=== PATIENT | female | born 1965 | race Caucasian/White ===

== ENCOUNTER 2017-04-06 09:03 | Day surgery (SDC) | payer BC ==
[~2017-04-06 09:03] MED LIST: Lactated Ringers 1,000 ML IV SCH; Lidocaine 2% 5 ML SDV ONE; Propofol 200 MG/20 ML SDV ONE; Sodium Chloride 0.9% 10 ML Syringe FLUSH PRN; Sodium Chloride 0.9% 2.5 ML Syringe FLUSH PRN; fentaNYL 100 MCG/2 ML SDV ONE
[2017-04-06] MEDS ORDERED: Midazolam 1 MG/ML 2 ML SDV ONE (09:05)
--- NOTE | 2017-04-06 09:34 | PCM.PREANE ---
Preanesthetic Assessment - Anesthesia/Transfusion/Family Hx Anesthesia History: Prior Anesthesia Reaction Other Type of Anesthesia Reaction Comment: Nausea post anesthesia, denies any known problem in past Family History of Anesthesia Reaction: No Transfusion History: Prior Transfusion Without Reaction Intubation History: Unknown - Review of Systems General: No Symptoms Pulmonary: No Symptoms Cardiovascular: No Symptoms Gastrointestinal: Abdominal Pain, Diarrhea Neurological: No Symptoms Other: Reports: None - Physical Assessment Height: 1.57 m Weight: 105.233 kg ASA Class: 3 Mental Status: Alert & Oriented x3 Airway Class: Mallampati = 2 Dentition: Reports: Normal Dentition, [place](s) (x2 lower (back)) Thyro-Mental Finger Breadths: 3 Mouth Opening Finger Breadths: 3 ROM/Head Extension: Full Lungs: Clear to Auscultation, Normal Respiratory Effort Cardiovascular: Regular Rate, Regular Rhythm - Allergies Allergies/Adverse Reactions: Allergies Allergy/AdvReac Type Severity Reaction Status Date / Time No Known Allergies Allergy Verified 03/18/17 13:36 - Blood Blood Available: No - Anesthesia Plan Pre-Op Medication Ordered: None - Acknowledgements Anesthesia Type Planned: MAC Pt an Appropriate Candidate for the Planned Anesthesia: Yes Alternatives and Risks of Anesthesia Discussed w Pt/Guardian: Yes Pt/Guardian Understands and Agrees with Anesthesia Plan: Yes PreAnesthesia Questionnaire HEENT History: Reports: Allergic Rhinitis Other HEENT History: wears glasses Cardiovascular History: Reports: High Cholesterol Respiratory History: Reports: Sleep Apnea Other Respiratory History: uses CPAP Gastrointestinal History: Reports: Cholelithiasis, GERD Other Gastrointestinal History: Indigestion, epigastric pain Genitourinary History: Reports: Renal Calculus Other Genitourinary History: currently has left kidney stone, has passed a stone previously Psychiatric History: Reports: Anxiety, Depression Endocrine/Metabolic History: Reports: Obesity/BMI 30+ - Past Surgical History HEENT Surgical History: Reports: Tonsillectomy Female Surgical History: Reports: D&C, Hysterectomy Other Female Surgeries/Procedures: Laparoscopy for cysts - SUBSTANCE USE Smoking Status *Q: Never Smoker Recreational Drug Use History: No - HOME MEDS Home Medications: Home Meds Citalopram Hydrobromide [Citalopram HBr] 10 mg PO DAILY 02/25/15 [History] Zolpidem Tartrate [Zolpidem Tartrate ER] 1 tab PO BEDTIME PRN 02/25/15 [History] atorvaSTATin Calcium [Atorvastatin Calcium] 20 mg PO BEDTIME 02/25/15 [History] Multivitamin [Multi-Day Vitamins] 1 tab PO DAILY 03/18/17 [History] Tamsulosin [Flomax] 0.4 mg PO BEDTIME 04/01/17 [History] - CURRENT (IN HOUSE) MEDS Current Meds: Current Medications Lactated Ringer's (Ringers, Lactated) 1,000 mls @ 125 mls/hr IV ASDIRECTED VIVIAN Sodium Chloride (Saline Flush) 10 ml FLUSH ASDIRECTED PRN PRN Reason: Keep Vein Open Sodium Chloride (Saline Flush) 2.5 ml FLUSH ASDIRECTED PRN PRN Reason: Keep Vein Open Discontinued Medications Fentanyl (Sublimaze) Confirm Administered Dose 100 mcg .ROUTE .STK-MED ONE Stop: 04/06/17 07:15 Lidocaine (Xylocaine-Mpf 2%) Confirm Administered Dose 5 ml .ROUTE .STK-MED ONE Stop: 04/06/17 07:15 Midazolam HCl (Versed 1 Mg/Ml) Confirm Administered Dose 2 mg .ROUTE .STK-MED ONE Stop: 04/06/17 09:06 Propofol (Diprivan 20 Ml) Confirm Administered Dose 400 mg .ROUTE .STK-MED ONE Stop: 04/06/17 07:15
[2017-04-06] MEDS ORDERED: Propofol 200 MG/20 ML SDV ONE (10:14)
[2017-04-06] MEDS ORDERED: ePHEDrine 50 MG/ML SDV ONE (10:23)
--- NOTE | 2017-04-06 10:35 | PCM.OPNOTE ---
- General Post-Op/Procedure Note Date of Surgery/Procedure: 04/06/17 Operative Procedure(s): EGD and colonoscopy Findings: Normal colon. Hiatal hernia Pre Op Diagnosis: Nausea, vomiting, malaise Post-Op Diagnosis: Hiatal hernia Anesthesia Technique: MAC Primary Surgeon: Karli Colin Condition: Good
[2017-04-06 13:28] VITALS: BP 141/65
--- NOTE | 2017-04-06 20:10 | OR ---
SURGEON: LISA DAILEY MD DATE OF PROCEDURE: 04/06/2017 PREOPERATIVE DIAGNOSIS: Nausea, vomiting, and malaise. POSTOPERATIVE DIAGNOSIS: Hiatal hernia. PROCEDURE PERFORMED: Diagnostic EGD and colonoscopy. ANESTHESIA: MAC. INSTRUMENT USED: Olympus endoscope, Olympus colonoscope. EXTENT OF EXAM: To the second portion of the duodenum, to the cecum. PREPARATION: Good. LIMITATIONS: None. INDICATION FOR EXAMINATION: The patient is a 51-year-old female, who presents with vague abdominal complaints. She is found to have cholelithiasis on imaging; however, her symptoms did not fit the classic symptomatic cholelithiasis picture. The decision was made to perform a diagnostic EGD and colonoscopy. The patient and I discussed the procedures as well as the expected perioperative course. We discussed the risks including bleeding, infection, or perforation. The patient verbalized understanding and wishes to proceed. PROCEDURE IN DETAIL: The patient was brought into the endoscopy suite and placed in a beach chair position. A time-out was completed verifying the patient's name, age, date of , allergies, and procedure to be performed. Monitored anesthesia care was induced, and continuous oxygen was provided via nasal cannula throughout the procedure. After adequate sedation was achieved, the Olympus endoscope was placed in the patient's mouth through a bite block and navigated under direct visualization to the level of the second portion of the duodenum. This appeared normal and a photograph was taken. The first portion of the duodenum appeared normal. The scope was then brought into the stomach and a photograph was taken of the pylorus and the esophageal hiatus. The patient was noted to have a small hiatal hernia. The scope was then straightened out, and the gastric mucosa inspected. This appeared normal with no evidence of ulceration or inflammation. Biopsies were taken of the gastric antrum, body, and fundus and sent for H. pylori testing. The scope was then brought into the distal esophagus where again I took a photograph of the hiatal hernia sac. The remainder of the distal esophagus appeared normal with no evidence of inflammation. The scope was then removed from the patient, and this part of the procedure was terminated. The patient was placed in a left lateral decubitus position. A digital rectal exam was performed that was normal. A well-lubricated colonoscope was inserted in the rectum and advanced under direct visualization to the level of cecum. The cecum was identified by both visual and anatomic landmarks. Photographs were taken of the cecal cap. The scope was then fully withdrawn while examining the color, texture, anatomy, and integrity of mucosa from the cecum to the anal canal. The findings were consistent with normal colonic mucosa. The scope was then brought into the rectum and retroflexed to allow visualization of the anal canal opening. This appeared normal, and a photograph was taken. The scope was then straightened out and removed from the patient. The cecum to anus time was 6 minutes. The patient tolerated the procedure well and transferred to the recovery room in stable condition. ENDOSCOPIC DIAGNOSIS: Hiatal hernia. RECOMMENDATION: Follow up in clinic in 2 weeks. KARSTEN HAN /[id number]
== END 2017-04-06 12:10 | disposition home or self-care (01) ==
LOC: MW.SDS 09:03
PROVIDERS: ATTEND Surgery
DX: K29.50 Unspecified chronic gastritis without bleeding (principal); K44.9 Diaphragmatic hernia without obstruction or gangrene; K80.20 Calculus of gallbladder without cholecystitis without obstruction; F41.8 Other specified anxiety disorders; E78.00 Pure hypercholesterolemia, unspecified; G47.10 Hypersomnia, unspecified; G47.30 Sleep apnea, unspecified; I10 Essential (primary) hypertension; E66.9 Obesity, unspecified; Z87.442 Personal history of urinary calculi; Z79.899 Other long term (current) drug therapy; Z90.710 Acquired absence of both cervix and uterus; Z90.89 Acquired absence of other organs; Z98.890 Other specified postprocedural states; Z68.41 Body mass index [BMI] 40.0-44.9, adult; Z99.89 Dependence on other enabling machines and devices
CPT/HCPCS: 43239; 45378; J2250; J7120; 00740; 88305; 88312; J2704; J3010

== ENCOUNTER 2017-05-05 06:32 | Day surgery (SDC) | payer BC ==
[2017-05-05] MEDS ORDERED: Lactated Ringers 1,000 ML IV SCH (07:00)
[2017-05-05] MEDS ORDERED: Sodium Chloride 0.9% 2.5 ML Syringe FLUSH PRN (07:00)
[2017-05-05] MEDS ORDERED: ceFAZolin 2 GM in Premix Bag 1 BAG IV ONE (07:00)
[2017-05-05] MEDS ORDERED: Sodium Chloride 0.9% 10 ML Syringe FLUSH PRN (07:00)
[2017-05-05] MEDS ORDERED: Propofol 200 MG/20 ML SDV ONE (07:17)
[2017-05-05] MEDS ORDERED: Rocuronium 10 MG/ML 10 ML Syringe ONE ×2 (07:17→08:23)
[2017-05-05] MEDS ORDERED: fentaNYL 100 MCG/2 ML SDV ONE (07:17)
[2017-05-05] MEDS ORDERED: Ondansetron 4 MG/2 ML SDV ONE (07:17)
[2017-05-05] MEDS ORDERED: Dexamethasone 4 MG/ML 5 ML MDV ONE (07:17)
[2017-05-05] MEDS ORDERED: Midazolam 1 MG/ML 2 ML SDV ONE (07:17)
[2017-05-05] MEDS ORDERED: Sugammadex Sodium 200 MG/2 ML VIAL ONE ×2 (07:23→08:46)
--- NOTE | 2017-05-05 08:05 | PCM.PREANE ---
Preanesthetic Assessment - Procedure Proposed Procedure: ESWL - Anesthesia/Transfusion/Family Hx Anesthesia History: Prior Anesthesia Reaction Other Type of Anesthesia Reaction Comment: Nausea post anesthesia, denies any known problem in past Transfusion History: Prior Transfusion Without Reaction Intubation History: Unknown - Review of Systems General: No Symptoms Pulmonary: No Symptoms Cardiovascular: No Symptoms Gastrointestinal: Abdominal Pain, Other (GERD - treated) Neurological: No Symptoms Other: Reports: Anxiety - Physical Assessment NPO Status Date: 05/04/17 NPO Status Time: 19:30 O2 Sat by Pulse Oximetry: 96 Respiratory Rate: 16 Vital Signs: Last Vital Signs Temp 97.7 F 05/05/17 06:35 Pulse 68 05/05/17 06:35 Resp 16 05/05/17 06:35 BP 126/75 05/05/17 06:35 Pulse Ox 96 05/05/17 06:35 Height: 5 ft 2 in Weight: 226 lb ASA Class: 2 Mental Status: Alert & Oriented x3 Airway Class: Mallampati = 3 (probably voluntary) Dentition: Reports: Normal Dentition Thyro-Mental Finger Breadths: 3 Mouth Opening Finger Breadths: 3 ROM/Head Extension: Full Lungs: Clear to Auscultation, Normal Respiratory Effort Cardiovascular: Regular Rate, Regular Rhythm, No Murmurs - Allergies Allergies/Adverse Reactions: Allergies Allergy/AdvReac Type Severity Reaction Status Date / Time No Known Allergies Allergy Verified 03/18/17 13:36 - Blood Blood Available: No Product(s) Available: None - Anesthesia Plan Pre-Op Medication Ordered: None - Acknowledgements Anesthesia Type Planned: General Anesthesia (OETT) Pt an Appropriate Candidate for the Planned Anesthesia: Yes Alternatives and Risks of Anesthesia Discussed w Pt/Guardian: Yes Pt/Guardian Understands and Agrees with Anesthesia Plan: Yes PreAnesthesia Questionnaire HEENT History: Reports: Allergic Rhinitis Other HEENT History: wears glasses Cardiovascular History: Reports: High Cholesterol Respiratory History: Reports: Sleep Apnea Other Respiratory History: uses CPAP Gastrointestinal History: Reports: Cholelithiasis, GERD Other Gastrointestinal History: Indigestion, epigastric pain Genitourinary History: Reports: Renal Calculus Other Genitourinary History: currently has left kidney stone, has passed a stone previously Psychiatric History: Reports: Anxiety, Depression Endocrine/Metabolic History: Reports: Obesity/BMI 30+ - Past Surgical History Head Surgeries/Procedures: Reports: None HEENT Surgical History: Reports: Tonsillectomy GI Surgical History: Reports: Colonoscopy, EGD Other GI Surgeries/Procedures: EGD & colonoscopy on 04/07/17 Female Surgical History: Reports: D&C, Hysterectomy Other Female Surgeries/Procedures: Laparoscopy for cysts - SUBSTANCE USE Smoking Status *Q: Never Smoker Recreational Drug Use History: No - HOME MEDS Home Medications: Home Meds Citalopram Hydrobromide [Citalopram HBr] 10 mg PO DAILY 02/25/15 [History] Zolpidem Tartrate [Zolpidem Tartrate ER] 1 tab PO BEDTIME PRN 02/25/15 [History] atorvaSTATin Calcium [Atorvastatin Calcium] 20 mg PO BEDTIME 02/25/15 [History] Multivitamin [Multi-Day Vitamins] 1 tab PO DAILY 03/18/17 [History] Omeprazole 20 mg PO DAILY #30 cap.cr 04/06/17 [Rx] - CURRENT (IN HOUSE) MEDS Current Meds: Current Medications Lactated Ringer's (Ringers, Lactated) 1,000 mls @ 100 mls/hr IV ASDIRECTED VIVIAN Last Admin: 05/05/17 06:47 Dose: 100 mls/hr Sodium Chloride (Saline Flush) 10 ml FLUSH ASDIRECTED PRN PRN Reason: Keep Vein Open Sodium Chloride (Saline Flush) 2.5 ml FLUSH ASDIRECTED PRN PRN Reason: Keep Vein Open Discontinued Medications Dexamethasone (Dexamethasone) Confirm Administered Dose 20 mg .ROUTE .STK-MED ONE Stop: 05/05/17 07:18 Fentanyl (Sublimaze) Confirm Administered Dose 100 mcg .ROUTE .STK-MED ONE Stop: 05/05/17 07:18 Glycopyrrolate () Confirm Administered Dose 1 mg .ROUTE .STK-MED ONE Stop: 05/05/17 07:18 Cefazolin Sodium/Dextrose 2 gm (/ Premix) 50 mls @ 100 mls/hr IV ONCALL ONE Stop: 05/05/17 07:29 Acetaminophen (Ofirmev) Confirm Administered Dose 100 mls @ as directed IV .STK- MED ONE Stop: 05/05/17 07:24 Lidocaine HCl (Xylocaine-Mpf 1%) Confirm Administered Dose 5 ml .ROUTE .STK-MED ONE Stop: 05/05/17 07:18 Midazolam HCl (Versed 1 Mg/Ml) Confirm Administered Dose 2 mg .ROUTE .STK-MED ONE Stop: 05/05/17 07:18 Ondansetron HCl (Zofran) Confirm Administered Dose 4 mg .ROUTE .STK-MED ONE Stop: 05/05/17 07:18 Propofol (Diprivan 20 Ml) Confirm Administered Dose 400 mg .ROUTE .STK-MED ONE Stop: 05/05/17 07:18 Rocuronium [place] (Zemuron) Confirm Administered Dose 100 mg .ROUTE .STK-MED ONE Stop: 05/05/17 07:18
[2017-05-05] MEDS ORDERED: Metoclopramide 10 MG/2 ML SDV ONE (08:32)
[2017-05-05] MEDS ORDERED: Multivitamin Tab PO SCH (09:00)
[2017-05-05] MEDS ORDERED: Omeprazole 20 MG Cap.CR PO SCH (09:00)
[2017-05-05] MEDS ORDERED: Citalopram 20 MG Tab PO SCH (09:00)
--- NOTE | 2017-05-05 09:23 | OR ---
SURGEON: Rashawn Sepulveda M.D. DATE OF PROCEDURE: 05/05/2017 PREOPERATIVE DIAGNOSIS: Left ureteropelvic junction stone, 6 mm. POSTOPERATIVE DIAGNOSIS: Left ureteropelvic junction stone, 6 mm. OPERATION: Extracorporeal shock wave lithotripsy. DESCRIPTION OF OPERATION: The patient is placed on the lithotripsy table. Under general anesthesia, the position of the patient was adjusted, so the stone could be treated and eventually received a total of 2000 shocks. At the end of the treatment, the stone fragmentation appears quite adequate. With that done, the procedure was terminated and the patient was moved to recovery room in good condition. HAMILTON / EMELY /[id number]
--- NOTE | 2017-05-05 09:25 | PCM.POSTAN ---
POST ANESTHESIA ASSESSMENT - MENTAL STATUS Mental Status: Alert, Oriented - RESPIRATORY Respiratory Status: Respiratory Rate WNL, Airway Patent, O2 Saturation Stable - CARDIOVASCULAR CV Status: Pulse Rate WNL, Blood Pressure Stable - GASTROINTESTINAL GI Status: No Symptoms - POST OP HYDRATION Hydration Status: Adequate & Stable - OBSERVATIONS Free Text/Narrative:: Return to [facility] for phase II recovery....in good condition already.
[2017-05-05 10:07] VITALS: BP 128/73
--- NOTE | 2017-05-05 12:57 | PCM48HPAN ---
Post Anesthesia Note - EVALUATION WITHIN 48HRS OF ANESTHETIC Vital Signs in Normal Range: Yes Patient Participated in Evaluation: Yes Respiratory Function Stable: Yes Airway Patent: Yes Cardiovascular Function Stable: Yes Hydration Status Stable: Yes Pain Control Satisfactory: Yes Nausea and Vomiting Control Satisfactory: Yes Mental Status Recovered: Yes
[2017-05-05] MEDS ORDERED: atorvaSTATin 20 MG Tab PO SCH (21:00)
== END 2017-05-05 10:05 | disposition home or self-care (01) ==
LOC: MW.SDS 06:32
PROVIDERS: ATTEND Urology
DX: N20.1 Calculus of ureter (principal); F41.8 Other specified anxiety disorders; E78.00 Pure hypercholesterolemia, unspecified; G47.30 Sleep apnea, unspecified; I10 Essential (primary) hypertension; Z87.442 Personal history of urinary calculi; Z79.899 Other long term (current) drug therapy; Z90.710 Acquired absence of both cervix and uterus; Z90.89 Acquired absence of other organs; Z98.890 Other specified postprocedural states; Z99.89 Dependence on other enabling machines and devices
CPT/HCPCS: 50590; C9399; J1100; J2250; J2405; J2765; J3010; J7120; 00873; J2704

== ENCOUNTER 2019-08-05 13:17 | Observation (INO) | payer BC ==
[2019-08-05] MEDS ORDERED: Albuterol/Ipratropium 3.0-0.5 MG/3 ML Neb Soln NEB ONE (13:59)
[2019-08-05] MEDS ORDERED: methylPREDNISolone Sodium Succinate 125 MG/2 ML SDV IVPUSH ONE (14:45)
--- NOTE | 2019-08-05 14:45 | EDM.PDOC ---
ED HPI GENERAL MEDICAL PROBLEM - General Chief Complaint: ENT Problem Stated Complaint: PAIN IN EARS Time Seen by Provider: 08/05/19 13:51 Source of Information: Reports: Patient History Limitations: Reports: No Limitations - History of Present Illness INITIAL COMMENTS - FREE TEXT/NARRATIVE: HISTORY AND PHYSICAL: History of present illness: Patient is a 54-year-old female who presents to the ED today with concern of feeling short of breath since this morning, ear pain over the last 2 days, and sinus congestion over the past 2 days. Patient states her symptoms started with left-sided ear pain but then both ears were bothering her. Patient states yesterday her sinuses were congested and felt as if they were "burning ". Patient states when she woke up this morning she felt short of breath so decided to come to be evaluated in the ED. Patient denies any health history or any other symptoms or concerns. Patient denies fever, chills, chest pain, or cough. Denies headache, neck stiff ness, change in vision, syncope, or near syncope. Denies nausea, vomiting, abdominal pain, diarrhea, constipation, or dysuria. Has not noted any blood in urine or stool. Patient has been eating and drinking appropriately. Review of systems: As per history of present illness and below otherwise all systems reviewed and negative. Past medical history: As per history of present illness and as reviewed below otherwise noncontributory. Surgical history: As per history of present illness and as reviewed below otherwise noncontributory. Social history: See social history for further information Family history: As per history of present illness and as reviewed below otherwise noncontributory. Physical exam: General: Patient is alert, oriented, and in no acute distress. Patient sitting comfortably on exam table. HEENT: Atraumatic, normocephalic, pupils equal and reactive bilaterally, negative for conjunctival pallor or scleral icterus, mucous membranes moist, Left TM is erythematous and bulging, right TM is normal, throat clear, neck supple, nontender, trachea midline. No drooling or trismus noted. No meningeal signs. No hot potato voice noted. Lungs: Clear to auscultation, breath sounds equal bilaterally, chest nontender. Heart: S1S2, regular rate and rhythm without overt murmur Abdomen: Soft, nondistended, nontender. Negative for masses or hepatosplenomegaly. Negative for costovertebral tenderness. Pelvis: Stable nontender. Genitourinary: Deferred. Rectal: Deferred. Skin: Intact, warm, dry. No lesions or rashes noted. Extremities: Atraumatic, negative for cords or calf pain. Neurovascular unremarkable. Neuro: Awake, alert, oriented. Cranial nerves II through XII unremarkable. Cerebellum unremarkable. Motor and sensory unremarkable throughout. Exam nonfocal. Notes: Patient was 87% on room air upon arrival to the ED. DuoNeb was initiated and patient did come up to 92%. However, shortly following the DuoNeb, patient did drop back down to 87 to 88% on room air. Placed on 2 L nasal cannula and patient is stating 96%. Patient did go back down to 90% on 2L and increased to 4L NC and now 93% Rashard Hidalgo consulted on patient and will admit to observation on telemetry Voices understanding and is agreeable to plan of care. Denies any further questions or concerns at this time. Diagnostics: CBC, CMP, UA, EKG, CXR, Troponin, Influenza, Strep, Ang CT, Influenza Therapeutics: Duoneb, Solumedrol Impression: Hypoxia Left acute otitis media Plan: Admit to observation to Dr. Wetzel on telemetry Definitive disposition and diagnosis as appropriate pending reevaluation and review of above. Bilateral Ear Pain Score (Numeric/FACES): 2 - Related Data Allergies Allergy/AdvReac Type Severity Reaction Status Date / Time No Known Allergies Allergy Verified 08/05/19 13:49 Home Meds: Home Meds Citalopram Hydrobromide [Citalopram HBr] 10 mg PO DAILY 02/25/15 [History] Zolpidem Tartrate [Zolpidem Tartrate ER] 1 tab PO BEDTIME PRN 02/25/15 [History] atorvaSTATin Calcium [Atorvastatin Calcium] 20 mg PO BEDTIME 02/25/15 [History] Multivitamin [Multi-Day Vitamins] 1 tab PO DAILY 03/18/17 [History] Omeprazole 20 mg PO DAILY #30 cap.cr 04/06/17 [Rx] Past Medical History HEENT History: Reports: Allergic Rhinitis Other HEENT History: wears glasses Cardiovascular History: Reports: High Cholesterol Respiratory History: Reports: Sleep Apnea Other Respiratory History: uses CPAP Gastrointestinal History: Reports: Cholelithiasis, GERD Other Gastrointestinal History: Indigestion, epigastric pain Genitourinary History: Reports: Renal Calculus Other Genitourinary History: currently has left kidney stone, has passed a stone previously Psychiatric History: Reports: Anxiety, Depression Endocrine/Metabolic History: Reports: Obesity/BMI 30+ - Infectious Disease History Infectious Disease History: Reports: Chicken Pox - Past Surgical History Head Surgeries/Procedures: Reports: None HEENT Surgical History: Reports: Tonsillectomy GI Surgical History: Reports: Colonoscopy, EGD Other GI Surgeries/Procedures: EGD & colonoscopy on 04/07/17 Female Surgical History: Reports: D&C, Hysterectomy Other Female Surgeries/Procedures: Laparoscopy for cysts Social & Family History - Tobacco Use Smoking Status *Q: Never Smoker - Caffeine Use Caffeine Use: Reports: Coffee - Recreational Drug Use Recreational Drug Use: No ED ROS GENERAL - Review of Systems Review Of Systems: Comprehensive ROS is negative, except as noted in HPI. ED EXAM, GENERAL - Physical Exam Exam: See Below (see dictation) Course - Vital Signs Last Recorded V/S: Last Vital Signs Temp 96.6 F 08/05/19 18:26 Pulse 71 08/05/19 18:26 Resp 20 08/05/19 18:26 BP 151/82 H 08/05/19 18: Pulse Ox 94 L 08/05/19 18:47 - Orders/Labs/Meds Orders: Active Orders 24 hr Category Date Time Status RT Aerosol Therapy [RC] ASDIRECTED Care 08/05/19 13:59 Active Medication Orders Acetaminophen (Tylenol) 650 mg PO Q4H PRN PRN Reason: Pain/Fever Albuterol/Ipratropium (Duoneb 3.0-0.5 Mg/3 Ml) 3 ml NEB Q4HRRT PRN PRN Reason: Shortness of Breath Amoxicillin/Clavulanate Potassium (Augmentin 875 Mg/125 Mg) 1 tab PO Q12HR [facility] Atorvastatin Calcium (Lipitor) 20 mg PO BEDTIME [facility] Enoxaparin Sodium (Lovenox) 40 mg SUBCUT Q24H [facility] Last Admin: 08/05/19 19:01 Dose: 40 mg Methylprednisolone Sodium Succinate (Solu-Medrol) 125 mg IVPUSH DAILY [facility] Multivitamins/Minerals/Vitamin C (Tab-A-Luis) 1 tab PO DAILY [facility] Non-Formulary Medication (Citalopram) 10 mg PO DAILY [facility] Omeprazole (Omeprazole) 20 mg PO DAILY [facility] Ondansetron HCl (Zofran) 4 mg IVPUSH Q4H PRN PRN Reason: Nausea/Vomiting Labs: Laboratory Tests 08/05/19 08/05/19 08/05/19 Range/Units 15:10 15:14 15:14 WBC 10.62 (4.0-11.0) K/uL RBC 4.93 (4.30-5.90) M/uL Hgb 14.1 (12.0-16.0) g/dL Hct 44.4 (36.0-46.0) % MCV 90.1 (80.0-98.0) fL MCH 28.6 (27.0-32.0) pg MCHC 31.8 (31.0-37.0) g/dL RDW Std Deviation 47.8 (28.0-62.0) fl RDW Coeff of Kate 15 (11.0-15.0) % Plt Count 260 (150-400) K/uL MPV 10.20 (7.40-12.00) fL Neut % (Auto) 62.7 (48.0-80.0) % Lymph % (Auto) 23.3 (16.0-40.0) % [place] % (Auto) 10.1 (0.0-15.0) % Eos % (Auto) 3.7 (0.0-7.0) % Baso % (Auto) 0.2 (0.0-1.5) % Neut # (Auto) 6.7 H (1.4-5.7) K/uL Lymph # (Auto) 2.5 H (0.6-2.4) K/uL [place] # (Auto) 1.1 H (0.0-0.8) K/uL Eos # (Auto) 0.4 (0.0-0.7) K/uL Baso # (Auto) 0.0 (0.0-0.1) K/uL Nucleated RBC % 0.0 /100WBC Nucleated RBCs # 0 K/uL Sodium 144 (136-145) mmol/L Potassium 4.0 (3.5-5.1) mmol/L Chloride 106 (98-107) mmol/L Carbon Dioxide 31.4 (21.0-32.0) mmol/L BUN 14 (7.0-18.0) mg/dL Creatinine 0.9 (0.6-1.0) mg/dL Est Cr Clr Drug Dosing 58.42 mL/min Estimated GFR (MDRD) > 60.0 ml/min Glucose 125 H (74-106) mg/dL Calcium 9.2 (8.5-10.1) mg/dL Total Bilirubin 0.2 (0.2-1.0) mg/dL AST 22 (15-37) IU/L ALT 48 (14-63) IU/L Alkaline Phosphatase 105 (46-116) U/L Troponin I < 0.050 (0.000-0.056) ng/mL Total Protein 7.5 (6.4-8.2) g/dL Albumin 3.8 (3.4-5.0) g/dL Globulin 3.7 (2.6-4.0) g/dL Albumin/Globulin Ratio 1.0 (0.9-1.6) Lipase 104 (73-393) U/L Urine Color YELLOW Urine Appearance CLEAR Urine pH 5.5 (5.0-8.0) Ur Specific [place] >= 1.030 (1.001-1.035) Urine Protein NEGATIVE (NEGATIVE) mg/dL Urine Glucose (UA) NEGATIVE (NEGATIVE) mg/dL Urine Ketones NEGATIVE (NEGATIVE) mg/dL Urine Occult Blood SMALL H (NEGATIVE) Urine Nitrite NEGATIVE (NEGATIVE) Urine Bilirubin NEGATIVE (NEGATIVE) Urine Urobilinogen 1.0 (<2.0) EU/dL Ur Leukocyte Esterase NEGATIVE (NEGATIVE) Urine RBC 0-2 (0-2/HPF) Urine WBC 0-2 (0-5/HPF) Ur Epithelial Cells OCCASIONAL (NONE-FEW) Urine Bacteria FEW (NEGATIVE) Urine Mucus LIGHT (NONE-MOD) Meds: Medications Generic Name Dose Route Start Last Admin Trade Name Freq PRN Reason Stop Dose Admin Acetaminophen 650 mg 08/05/19 18:26 Tylenol PO Q4H PRN Pain/Fever Albuterol/Ipratropium 3 ml 08/05/19 18:26 Duoneb 3.0-0.5 Mg/3 Ml NEB Q4HRRT PRN Shortness of Breath Amoxicillin/Clavulanate Potassium 1 tab 08/05/19 21:00 Augmentin 875 Mg/125 Mg PO Q12HR [facility] Atorvastatin Calcium 20 mg 08/05/19 21:00 Lipitor PO BEDTIME [facility] Enoxaparin Sodium 40 mg 08/05/19 18:30 08/05/19 19:01 Lovenox SUBCUT 40 mg Q24H [facility] Administration Methylprednisolone Sodium Succinate 125 mg 08/06/19 09:00 Solu-Medrol IVPUSH DAILY [facility] Multivitamins/Minerals/Vitamin C 1 tab 08/06/19 09:00 Tab-A-Luis PO DAILY [facility] Non-Formulary Medication 10 mg 08/06/19 09:00 Citalopram PO DAILY [facility] Omeprazole 20 mg 08/06/19 09:00 Omeprazole PO DAILY [facility] Ondansetron HCl 4 mg 08/05/19 18:26 Zofran IVPUSH Q4H PRN Nausea/Vomiting Discontinued Medications Generic Name Dose Route Start Last Admin Trade Name Freq PRN Reason Stop Dose Admin Albuterol/Ipratropium 3 ml 08/05/19 13:59 08/05/19 14:04 Duoneb 3.0-0.5 Mg/3 Ml NEB 08/05/19 14:00 3 ml ONETIME ONE Administration Influenza Virus Vaccine 1 each 08/06/19 11:00 Pharmacy To Dose - Influenza Vaccine IM 08/06/19 11:01 ONETIME ONE Influenza Virus Vaccine 60 mcg 08/05/19 19:00 Fluzone Quad [id number] Syringe IM 08/05/19 19:01 .ONCE ONE Iopamidol 100 ml 08/05/19 16:43 08/05/19 16:45 Isovue Multipack-370 (76%) IVPUSH 08/05/19 16:44 100 ml ONETIME ONE Administration Iopamidol 100 ml 08/05/19 16:44 Isovue Multipack-370 (76%) IVPUSH 08/05/19 16:45 ONETIME ONE Methylprednisolone Sodium Succinate 125 mg 08/05/19 14:45 08/05/19 15:09 Solu-Medrol IVPUSH 08/05/19 14:46 125 mg ONETIME ONE Administration Departure - Departure Time of Disposition: 17:44 Disposition: Refer to Observation Clinical Impression: Hypoxia Otitis media Qualifiers: Otitis media type: suppurative Chronicity: acute Laterality: left Recurrence: not specified as recurrent Spontaneous tympanic membrane rupture: without spontaneous rupture Qualified Code(s): H66.002 - Acute suppurative otitis media without spontaneous rupture of ear drum, left ear - Discharge Information Sepsis Event Note - Evaluation Sepsis Screening Result: No Definite Risk - Focused Exam Vital Signs: Vital Signs Temp Pulse Resp BP Pulse Ox 08/05/19 17:09 97.1 F 71 18 158/83 H 94 L 08/05/19 16:37 85 92 L 08/05/19 13:50 98.3 F 83 18 165/81 H 90 L Date Exam was Performed: 08/05/19 Time Exam was Performed: 19:33
--- NOTE | 2019-08-05 15:05 | CR ---
Chest: 2 views of the chest were obtained. Comparison: Prior chest x-ray of 10/15/16. Heart size and mediastinum are normal. Lungs are clear with no acute parenchymal change. Bony structures shows minimal scoliosis within the spine. No acute osseous finding is seen. Impression: 1. Nothing acute is appreciated on 2 view chest x-ray. Diagnostic code #2 Study was dictated in [place] Standard Time
[2019-08-05 15:50] LABS: BLOOD UREA NITROGEN,BUN 14 mg/dL (7.0-18.0); CARBON DIOXIDE,CO2 31.4 mmol/L (21.0-32.0); CHLORIDE,CL 106 mmol/L (98-107); GLUCOSE RANDOM 125 mg/dL (74-106); LIPASE 104 U/L (73-393); SODIUM,NA 144 mmol/L (136-145)
[2019-08-05] MEDS ORDERED: Iopamidol 755 MG/ML 200 ML Multipack Bottle IVPUSH ONE ×2 (16:43→16:44)
--- NOTE | 2019-08-05 17:11 | CT ---
CT chest Technique: Multiple axial sections through the chest are obtained. Intravenous contrast was utilized. Study is slightly less than optimal in opacification of the pulmonary arteries. Findings: Aorta shows no aneurysm. Pulmonary arteries show no filling defects within the main or segmental branches to indicate pulmonary embolism. Smaller subsegmental pulmonary emboli could be missed. Mediastinum and hilar regions show no adenopathy. No axillary adenopathy is seen. Small hiatal hernia is noted. Visualized upper abdominal structures otherwise appear within normal limits. Lung window setting shows no acute parenchymal change within either lung. No pleural effusions are seen. No pneumothorax is noted. Slight peripheral fibrosis and scarring is present. Bone window settings were reviewed. No acute osseous finding is appreciated. Impression: 1. Opacification of the pulmonary artery slightly less than optimal. No findings of pulmonary embolism within this main or segmental branches. Smaller subsegmental pulmonary emboli could be missed. 2. Mild areas of peripheral fibrosis and scarring within both lungs. 3. Small hiatal hernia. 4. Nothing acute is otherwise seen on CT study of the chest. Diagnostic code #2 Study was dictated in [place] Standard Time
--- NOTE | 2019-08-05 18:22 | PCM.HP.2 ---
H&P History of Present Illness - General Date of Service: 08/05/19 Admit Problem/Dx: Admission Diagnosis/Problem Admission Diagnosis/Problem Hypoxia - History of Present Illness Initial Comments - Free Text/Narative: The patient is a 54 year old female with past medical history of hyperlipidemia , sleep apnea, GERD, anx/dep who presents today worsening shortness of breath, wheezing, and non productive cough which started last night. Denies hx of asthma or COPD. Also reports left ear pain and sinus pressure. Denies fever/ chills, chest pain, abdominal pain, nausea/vomiting, constipation/diarrhea, dysuria. Non smoker. In the ER, work up showed CBC, CMP wnl, negative troponin, CXR negative, CTA negative for PE. EKG showed NSR no ST changes. Upon arrival satting 87% on RA , given duoneb, improved to 92% but then dropped back down, now on 4 L of oxygen satting at 93-94%. Given duoneb and solumedrol in the ER. PCP- Ema Bilateral Ear Pain Score (Numeric/FACES): 2 - Related Data Allergies/Adverse Reactions: Allergies Allergy/AdvReac Type Severity Reaction Status Date / Time No Known Allergies Allergy Verified 08/05/19 13:49 Home Medications: Home Meds Citalopram Hydrobromide [Citalopram HBr] 10 mg PO DAILY 02/25/15 [History] Zolpidem Tartrate [Zolpidem Tartrate ER] 1 tab PO BEDTIME PRN 02/25/15 [History] atorvaSTATin Calcium [Atorvastatin Calcium] 20 mg PO BEDTIME 02/25/15 [History] Multivitamin [Multi-Day Vitamins] 1 tab PO DAILY 03/18/17 [History] Omeprazole 20 mg PO DAILY #30 cap.cr 04/06/17 [Rx] Past Medical History HEENT History: Reports: Allergic Rhinitis Other HEENT History: wears glasses Cardiovascular History: Reports: High Cholesterol Respiratory History: Reports: Sleep Apnea Other Respiratory History: uses CPAP Gastrointestinal History: Reports: Cholelithiasis, GERD Other Gastrointestinal History: Indigestion, epigastric pain Genitourinary History: Reports: Renal Calculus Other Genitourinary History: currently has left kidney stone, has passed a stone previously Psychiatric History: Reports: Anxiety, Depression Endocrine/Metabolic History: Reports: Obesity/BMI 30+ - Infectious Disease History Infectious Disease History: Reports: Chicken Pox - Past Surgical History Head Surgeries/Procedures: Reports: None HEENT Surgical History: Reports: Tonsillectomy GI Surgical History: Reports: Colonoscopy, EGD Other GI Surgeries/Procedures: EGD & colonoscopy on 04/07/17 Female Surgical History: Reports: D&C, Hysterectomy Other Female Surgeries/Procedures: Laparoscopy for cysts Social & Family History - Tobacco Use Smoking Status *Q: Never Smoker - Caffeine Use Caffeine Use: Reports: Coffee - Recreational Drug Use Recreational Drug Use: No H&P Review of Systems - Review of Systems: Review Of Systems: See Below General: Reports: No Symptoms HEENT: Reports: Ear Pain, Sinus Congestion Pulmonary: Reports: Shortness of Breath, Wheezing, Cough Cardiovascular: Reports: No Symptoms Gastrointestinal: Reports: No Symptoms Genitourinary: Reports: No Symptoms Musculoskeletal: Reports: No Symptoms Skin: Reports: No Symptoms Psychiatric: Reports: No Symptoms Neurological: Reports: No Symptoms Hematologic/Lymphatic: Reports: No Symptoms Immunologic: Reports: No Symptoms Exam - Exam Exam: See Below - Vital Signs Vital Signs: Last Vital Signs Temp 97.1 F 08/05/19 17:09 Pulse 71 08/05/19 17:09 Resp 18 08/05/19 17:09 BP 158/83 H 08/05/19 17:09 Pulse Ox 94 L 08/05/19 17:09 Weight: 106.594 kg - Exam Quality Assessment: Supplemental Oxygen General: Alert, Oriented, Cooperative HEENT: Conjunctiva Clear, EOMI, Mucosa Moist & Singac, Posterior Pharynx Clear, Pupils Equal, Pupils Reactive, Other (left TM-erythema) Lungs: Clear to Auscultation, Normal Respiratory Effort Cardiovascular: Regular Rate, Regular Rhythm GI/Abdominal Exam: Normal Bowel Sounds, Soft, Non-Tender, No Distention Extremities: No Pedal Edema Skin: Warm, Dry Psychiatric: Alert, Normal Affect, Normal Mood - Patient Data Lab Results Last 24 hrs: Laboratory Results - last 24 hr 08/05/19 08/05/19 08/05/19 Range/Units 15:10 15:14 15:14 WBC 10.62 (4.0-11.0) K/uL RBC 4.93 (4.30-5.90) M/uL Hgb 14.1 (12.0-16.0) g/dL Hct 44.4 (36.0-46.0) % MCV 90.1 (80.0-98.0) fL MCH 28.6 (27.0-32.0) pg MCHC 31.8 (31.0-37.0) g/dL RDW Std Deviation 47.8 (28.0-62.0) fl RDW Coeff of Kate 15 (11.0-15.0) % Plt Count 260 (150-400) K/uL MPV 10.20 (7.40-12.00) fL Neut % (Auto) 62.7 (48.0-80.0) % Lymph % (Auto) 23.3 (16.0-40.0) % [place] % (Auto) 10.1 (0.0-15.0) % Eos % (Auto) 3.7 (0.0-7.0) % Baso % (Auto) 0.2 (0.0-1.5) % Neut # (Auto) 6.7 H (1.4-5.7) K/uL Lymph # (Auto) 2.5 H (0.6-2.4) K/uL [place] # (Auto) 1.1 H (0.0-0.8) K/uL Eos # (Auto) 0.4 (0.0-0.7) K/uL Baso # (Auto) 0.0 (0.0-0.1) K/uL Nucleated RBC % 0.0 /100WBC Nucleated RBCs # 0 K/uL Sodium 144 (136-145) mmol/L Potassium 4.0 (3.5-5.1) mmol/L Chloride 106 (98-107) mmol/L Carbon Dioxide 31.4 (21.0-32.0) mmol/L BUN 14 (7.0-18.0) mg/dL Creatinine 0.9 (0.6-1.0) mg/dL Est Cr Clr Drug Dosing 58.42 mL/min Estimated GFR (MDRD) > 60.0 ml/min Glucose 125 H (74-106) mg/dL Calcium 9.2 (8.5-10.1) mg/dL Total Bilirubin 0.2 (0.2-1.0) mg/dL AST 22 (15-37) IU/L ALT 48 (14-63) IU/L Alkaline Phosphatase 105 (46-116) U/L Troponin I < 0.050 (0.000-0.056) ng/mL Total Protein 7.5 (6.4-8.2) g/dL Albumin 3.8 (3.4-5.0) g/dL Globulin 3.7 (2.6-4.0) g/dL Albumin/Globulin Ratio 1.0 (0.9-1.6) Lipase 104 (73-393) U/L Urine Color YELLOW Urine Appearance CLEAR Urine pH 5.5 (5.0-8.0) Ur Specific [place] >= 1.030 (1.001-1.035) Urine Protein NEGATIVE (NEGATIVE) mg/dL Urine Glucose (UA) NEGATIVE (NEGATIVE) mg/dL Urine Ketones NEGATIVE (NEGATIVE) mg/dL Urine Occult Blood SMALL H (NEGATIVE) Urine Nitrite NEGATIVE (NEGATIVE) Urine Bilirubin NEGATIVE (NEGATIVE) Urine Urobilinogen 1.0 (<2.0) EU/dL Ur Leukocyte Esterase NEGATIVE (NEGATIVE) Urine RBC 0-2 (0-2/HPF) Urine WBC 0-2 (0-5/HPF) Ur Epithelial Cells OCCASIONAL (NONE-FEW) Urine Bacteria FEW (NEGATIVE) Urine Mucus LIGHT (NONE-MOD) Result Diagrams: 08/05/19 15:14 08/05/19 15:14 Sepsis Event Note - Evaluation Sepsis Screening Result: No Definite Risk - Focused Exam Vital Signs: Vital Signs Temp Pulse Resp BP Pulse Ox 08/05/19 17:09 97.1 F 71 18 158/83 H 94 L 08/05/19 16:37 85 92 L 08/05/19 13:50 98.3 F 83 18 165/81 H 90 L Date Exam was Performed: 08/05/19 Time Exam was Performed: 18:38 Problem List Initiated/Reviewed/Updated: Yes Orders Last 24hrs: Active Orders 24 hr Category Date Time Status Admission Status [Patient Status] [ADT] Stat ADT 08/05/19 17:45 Active EKG 12 Lead [EKG Documentation Completion] [RC] STAT Care 08/05/19 13:55 Active RT Aerosol Therapy [RC] ASDIRECTED Care 08/05/19 13:59 Active INFLUENZA A+B AG SCREEN [RM] Stat Lab 08/05/19 17:44 Received Assessment/Plan Comment:: 1. Admit for observation 2. Code Status- full 3. Vitals per routine 4. I/Os per routine 5. Diet- regular 6. DVT prophylaxis with lovenox 7. Hypoxia secondary to bronchitis- will treat with solumedrol, duonebs 8. Left acute otitis media- treat with augmentin 9. Chronic conditions- hyperlipidemia, GERD, anx/dep- continue home meds
[2019-08-05] MEDS ORDERED: Albuterol/Ipratropium 3.0-0.5 MG/3 ML Neb Soln NEB PRN (18:26)
[2019-08-05] MEDS ORDERED: Ondansetron 4 MG/2 ML SDV IVPUSH PRN (18:26)
[2019-08-05] MEDS ORDERED: Enoxaparin 40 MG/0.4 ML Syringe SUBCUT SCH (18:30)
[2019-08-05] MEDS ORDERED: FLU Vacc QS2019-20(6MOS+)/PF 60 MCG/0.5 ML SYRINGE IM ONE (19:00)
[2019-08-05] MEDS ORDERED: CITALOPRAM 10 MG PO SCH (21:00)
[2019-08-05] MEDS ORDERED: Omeprazole 20 MG Cap.CR PO SCH (21:00)
[2019-08-05] MEDS ORDERED: atorvaSTATin 20 MG Tab PO SCH (21:00)
[2019-08-05] MEDS: Acetaminophen 325 MG Tab PO PRN (21:58)
[2019-08-05] MEDS: Amoxicillin/Clavulanate K 875-125 MG Tab PO SCH (21:58)
[2019-08-06] MEDS: Acetaminophen 325 MG Tab PO PRN ×2 (02:03→07:44)
[2019-08-06 06:25] LABS: BLOOD UREA NITROGEN,BUN 15 mg/dL (7.0-18.0); CARBON DIOXIDE,CO2 30.1 mmol/L (21.0-32.0); CHLORIDE,CL 105 mmol/L (98-107); GLUCOSE RANDOM 150 mg/dL (74-106); POTASSIUM,K 4.4 mmol/L (3.5-5.1); SODIUM,NA 142 mmol/L (136-145)
[2019-08-06] MEDS ORDERED: Citalopram 20 MG Tab PO SCH (07:09)
[2019-08-06 08:38] VITALS: BP 125/92; PULSE 66
[2019-08-06] MEDS: Amoxicillin/Clavulanate K 875-125 MG Tab PO SCH (08:59)
[2019-08-06] MEDS ORDERED: Multivitamin Tab PO SCH (09:00)
[2019-08-06] MEDS ORDERED: methylPREDNISolone Sodium Succinate 125 MG/2 ML SDV IVPUSH SCH (09:00)
--- NOTE | 2019-08-06 09:05 | PCM.DCSUM1 ---
Discharge Summary - Hospital Course Brief History: The patient is a 54 year old female with past medical history of hyperlipidemia, sleep apnea, GERD, anx/dep who presents today worsening shortness of breath, wheezing, and non productive cough which started last night. Denies hx of asthma or COPD. Also reports left ear pain and sinus pressure. Denies fever/chills, chest pain, abdominal pain, nausea/vomiting, constipation/diarrhea, dysuria. Non smoker. In the ER, work up showed CBC, CMP wnl, negative troponin, CXR negative, CTA negative for PE. EKG showed NSR no ST changes. Upon arrival satting 87% on RA, given duoneb, improved to 92% but then dropped back down, now on 4 L of oxygen satting at 93-94%. Given duoneb and solumedrol in the ER. PCP- Ema Diagnosis: Stroke: No - Discharge Data Discharge Date: 08/06/19 Discharge Disposition: Home, Self-Care 01 Condition: Good - Referral to Home Health Primary Care Physician: Padma Boo, [employer] - Discharge Diagnosis/Problem(s) (1) Sinusitis SNOMED Code(s): 40820333 ICD Code: J32.9 - CHRONIC SINUSITIS, UNSPECIFIED Status: Acute Qualifiers: Sinusitis location: frontal Chronicity: acute (2) Otitis media SNOMED Code(s): 39907181 ICD Code: H66.90 - OTITIS MEDIA, UNSPECIFIED, UNSPECIFIED EAR Status: Acute Qualifiers: Otitis media type: suppurative Chronicity: acute Laterality: left Recurrence: not specified as recurrent Spontaneous tympanic membrane rupture: without spontaneous rupture Qualified Code(s): H66.002 - Acute suppurative otitis media without spontaneous rupture of ear drum, left ear (3) Hypoxia SNOMED Code(s): 197271590 ICD Code: R09.02 - HYPOXEMIA Status: Resolved - Patient Instructions Diet: Regular Diet as Tolerated, Drink 8-10+ Glasses/Day Activity: As Tolerated, No Strenuous Activities Showering/Bathing: May Shower Notify Provider of: Fever, Increased Pain, Swelling and Redness, Drainage, Nausea and/or Vomiting - Discharge Plan *PRESCRIPTION DRUG MONITORING PROGRAM REVIEWED*: Not Applicable *COPY OF PRESCRIPTION DRUG MONITORING REPORT IN PATIENT JORGE: Not Applicable Prescriptions/Med Rec: Amoxicillin/Clavulanate K [Augmentin 089-125 MG] 1 tab PO Q12HR #14 tablet Albuterol Sulfate [Proair Hfa] 1 - 2 puff IH Q4H PRN #1 hfa.aer.ad PRN Reason: shortnessofbreath/wheezing predniSONE [Prednisone] 40 mg PO DAILY #10 tablet Home Medications: Home Meds Citalopram Hydrobromide [Citalopram HBr] 10 mg PO DAILY 02/25/15 [History] Zolpidem Tartrate [Zolpidem Tartrate ER] 1 tab PO BEDTIME PRN 02/25/15 [History] atorvaSTATin Calcium [Atorvastatin Calcium] 20 mg PO BEDTIME 02/25/15 [History] Multivitamin [Multi-Day Vitamins] 1 tab PO DAILY 03/18/17 [History] Omeprazole 20 mg PO DAILY #30 cap.cr 04/06/17 [Rx] Albuterol Sulfate [Proair Hfa] 1 - 2 puff IH Q4H PRN #1 hfa.aer.ad 08/06/19 [Rx] Amoxicillin/Clavulanate K [Augmentin 875-125 MG] 1 tab PO Q12HR #14 tablet 08/06 [Rx] Fluticasone Propionate [Flonase] 1 spray NASBOTH DAILY #1 bottle 08/06/19 [Rx] predniSONE [Prednisone] 40 mg PO DAILY #10 tablet 08/06/19 [Rx] Oxygen Therapy Mode: Room Air Patient Handouts: Albuterol inhalation powder, Hypoxia, Amoxicillin; Clavulanic Acid tablets, Otitis Media, Adult, [id number], Sinusitis, Adult, [id number], Fluticasone nasal spray, Prednisone tablets Referrals: Nneka Boo NP [Primary Care Provider] - 08/13/19 11:00 am (follow up in 1 week) - Discharge Summary/Plan Comment DC Time >30 min.: No Discharge Summary/Plan Comment: Admitting Diagnoses: Hypoxia Bronchitis Otitis Media L Discharge Diagnoses: Hypoxia- resolved Bronchitis Otitis Media L Other PMH: JULIAN with CPAP Anxiety Shellie was admitted and treated for hypoxia, CXR and CT angio did not reveal consolidation. She was noted to have wheezing, she was given Solumedrol and breathing treatments for bronchitis. This resolved. Today she no longer is having SOB or hypoxia. She is on RA and tolerating this well. She reports increased sinus congestion nand L ear pain, but this is improved slightly. She is eager to be discharged home. She was educated on continuing Augmentin for 7 days along with Solumedrol for 4 more days for bronchitis. She was also given Flonase to help with congestion. We did discuss CPAP care and cleaning to prevent URI. She verbalized understanding. She is to return to ED or clinic if concerns should arise. - Patient Data Vitals - Most Recent: Last Vital Signs Temp 98.4 F 08/06/19 08:00 Pulse 66 08/06/19 08:00 Resp 16 08/06/19 08:00 BP 125/92 H 08/06/19 08:00 Pulse Ox 91 L 08/06/19 08:15 Weight - Most Recent: 106.594 kg I&O - Last 24 hours: Intake & Output 08/05/19 08/06/19 08/06/19 22:59 06:59 14:59 Intake Total 600 Output Total 450 Balance 150 Lab Results - Last 24 hrs: Laboratory Results - last 24 hr 08/05/19 08/05/19 08/05/19 Range/Units 15:10 15:14 15:14 WBC 10.62 (4.0-11.0) K/uL RBC 4.93 (4.30-5.90) M/uL Hgb 14.1 (12.0-16.0) g/dL Hct 44.4 (36.0-46.0) % MCV 90.1 (80.0-98.0) fL MCH 28.6 (27.0-32.0) pg MCHC 31.8 (31.0-37.0) g/dL RDW Std Deviation 47.8 (28.0-62.0) fl RDW Coeff of Kate 15 (11.0-15.0) % Plt Count 260 (150-400) K/uL MPV 10.20 (7.40-12.00) fL Neut % (Auto) 62.7 (48.0-80.0) % Lymph % (Auto) 23.3 (16.0-40.0) % [place] % (Auto) 10.1 (0.0-15.0) % Eos % (Auto) 3.7 (0.0-7.0) % Baso % (Auto) 0.2 (0.0-1.5) % Neut # (Auto) 6.7 H (1.4-5.7) K/uL Lymph # (Auto) 2.5 H (0.6-2.4) K/uL [place] # (Auto) 1.1 H (0.0-0.8) K/uL Eos # (Auto) 0.4 (0.0-0.7) K/uL Baso # (Auto) 0.0 (0.0-0.1) K/uL Nucleated RBC % 0.0 /100WBC Nucleated RBCs # 0 K/uL Sodium 144 (136-145) mmol/L Potassium 4.0 (3.5-5.1) mmol/L Chloride 106 (98-107) mmol/L Carbon Dioxide 31.4 (21.0-32.0) mmol/L BUN 14 (7.0-18.0) mg/dL Creatinine 0.9 (0.6-1.0) mg/dL Est Cr Clr Drug Dosing 58.42 mL/min Estimated GFR (MDRD) > 60.0 ml/min Glucose 125 H (74-106) mg/dL Calcium 9.2 (8.5-10.1) mg/dL Total Bilirubin 0.2 (0.2-1.0) mg/dL AST 22 (15-37) IU/L ALT 48 (14-63) IU/L Alkaline Phosphatase 105 (46-116) U/L Troponin I < 0.050 (0.000-0.056) ng/mL Total Protein 7.5 (6.4-8.2) g/dL Albumin 3.8 (3.4-5.0) g/dL Globulin 3.7 (2.6-4.0) g/dL Albumin/Globulin Ratio 1.0 (0.9-1.6) Lipase 104 (73-393) U/L Urine Color YELLOW Urine Appearance CLEAR Urine pH 5.5 (5.0-8.0) Ur Specific [place] >= 1.030 (1.001-1.035) Urine Protein NEGATIVE (NEGATIVE) mg/dL Urine Glucose (UA) NEGATIVE (NEGATIVE) mg/dL Urine Ketones NEGATIVE (NEGATIVE) mg/dL Urine Occult Blood SMALL H (NEGATIVE) Urine Nitrite NEGATIVE (NEGATIVE) Urine Bilirubin NEGATIVE (NEGATIVE) Urine Urobilinogen 1.0 (<2.0) EU/dL Ur Leukocyte Esterase NEGATIVE (NEGATIVE) Urine RBC 0-2 (0-2/HPF) Urine WBC 0-2 (0-5/HPF) Ur Epithelial Cells OCCASIONAL (NONE-FEW) Urine Bacteria FEW (NEGATIVE) Urine Mucus LIGHT (NONE-MOD) 08/06/19 08/06/19 Range/Units 05:55 05:55 WBC 11.59 H (4.0-11.0) K/uL RBC 4.86 (4.30-5.90) M/uL Hgb 14.1 (12.0-16.0) g/dL Hct 43.5 (36.0-46.0) % MCV 89.5 (80.0-98.0) fL MCH 29.0 (27.0-32.0) pg MCHC 32.4 (31.0-37.0) g/dL RDW Std Deviation 47.5 (28.0-62.0) fl RDW Coeff of Kate 15 (11.0-15.0) % Plt Count 275 (150-400) K/uL MPV 10.50 (7.40-12.00) fL Neut % (Auto) 84.6 H (48.0-80.0) % Lymph % (Auto) 11.3 L (16.0-40.0) % [place] % (Auto) 3.9 (0.0-15.0) % Eos % (Auto) 0.1 (0.0-7.0) % Baso % (Auto) 0.1 (0.0-1.5) % Neut # (Auto) 9.8 H (1.4-5.7) K/uL Lymph # (Auto) 1.3 (0.6-2.4) K/uL [place] # (Auto) 0.5 (0.0-0.8) K/uL Eos # (Auto) 0.0 (0.0-0.7) K/uL Baso # (Auto) 0.0 (0.0-0.1) K/uL Nucleated RBC % 0.0 /100WBC Nucleated RBCs # 0 K/uL Sodium 142 (136-145) mmol/L Potassium 4.4 (3.5-5.1) mmol/L Chloride 105 (98-107) mmol/L Carbon Dioxide 30.1 (21.0-32.0) mmol/L BUN 15 (7.0-18.0) mg/dL Creatinine 0.8 (0.6-1.0) mg/dL Est Cr Clr Drug Dosing 65.73 mL/min Estimated GFR (MDRD) > 60.0 ml/min Glucose 150 H (74-106) mg/dL Calcium 8.9 (8.5-10.1) mg/dL Total Bilirubin (0.2-1.0) mg/dL AST (15-37) IU/L ALT (14-63) IU/L Alkaline Phosphatase (46-116) U/L Troponin I (0.000-0.056) ng/mL Total Protein (6.4-8.2) g/dL Albumin (3.4-5.0) g/dL Globulin (2.6-4.0) g/dL Albumin/Globulin Ratio (0.9-1.6) Lipase (73-393) U/L Urine Color Urine Appearance Urine pH (5.0-8.0) Ur Specific [place] (1.001-1.035) Urine Protein (NEGATIVE) mg/dL Urine Glucose (UA) (NEGATIVE) mg/dL Urine Ketones (NEGATIVE) mg/dL Urine Occult Blood (NEGATIVE) Urine Nitrite (NEGATIVE) Urine Bilirubin (NEGATIVE) Urine Urobilinogen (<2.0) EU/dL Ur Leukocyte Esterase (NEGATIVE) Urine RBC (0-2/HPF) Urine WBC (0-5/HPF) Ur Epithelial Cells (NONE-FEW) Urine Bacteria (NEGATIVE) Urine Mucus (NONE-MOD) JACQUELINE Results - Last 24 hrs: Microbiology 08/05/19 17:44 Influenza Type A Antigen Screen - Final Nasopharyngeal Swab NEGATIVE INFLUENZA A VIRUS AG REFERENCE RANGE: NEGATIVE Influenza Type B Antigen Screen - Final NEGATIVE INFLUENZA B VIRUS AG REFERENCE RANGE: NEGATIVE Med Orders - Current: Current Medications Acetaminophen (Tylenol) 650 mg PO Q4H PRN PRN Reason: Pain/Fever Last Admin: 08/06/19 07:44 Dose: 650 mg Albuterol/Ipratropium (Duoneb 3.0-0.5 Mg/3 Ml) 3 ml NEB Q4HRRT PRN PRN Reason: Shortness of Breath Amoxicillin/Clavulanate Potassium (Augmentin 875 Mg/125 Mg) 1 tab PO Q12HR [facility] Last Admin: 08/06/19 08:59 Dose: 1 tab Atorvastatin Calcium (Lipitor) 20 mg PO BEDTIME [facility] Last Admin: 08/05/19 21:58 Dose: 20 mg Citalopram Hydrobromide (Celexa) 10 mg PO BEDTIME [facility] Enoxaparin Sodium (Lovenox) 40 mg SUBCUT Q24H [facility] Last Admin: 08/05/19 19:01 Dose: 40 mg Fluticasone Propionate (Flonase) 0 gm NASBOTH DAILY [facility] Methylprednisolone Sodium Succinate (Solu-Medrol) 125 mg IVPUSH DAILY [facility] Last Admin: 08/06/19 09:00 Dose: 125 mg Multivitamins/Minerals/Vitamin C (Tab-A-Luis) 1 tab PO DAILY [facility] Last Admin: 08/06/19 08:59 Dose: 1 tab Omeprazole (Omeprazole) 20 mg PO BEDTIME [facility] Last Admin: 08/05/19 21:58 Dose: 20 mg Ondansetron HCl (Zofran) 4 mg IVPUSH Q4H PRN PRN Reason: Nausea/Vomiting Discontinued Medications Albuterol/Ipratropium (Duoneb 3.0-0.5 Mg/3 Ml) 3 ml NEB ONETIME ONE Stop: 08/05/19 14:00 Last Admin: 08/05/19 14:04 Dose: 3 ml Influenza Virus Vaccine (Pharmacy To Dose - Influenza Vaccine) 1 each IM ONETIME ONE Stop: 08/06/19 11:01 Influenza Virus Vaccine (Fluzone Quad [id number] Syringe) 60 mcg IM .ONCE ONE Stop: 08/05/19 19:01 Iopamidol (Isovue Multipack-370 (76%)) 100 ml IVPUSH ONETIME ONE Stop: 08/05/19 16:44 Last Admin: 08/05/19 16:45 Dose: 100 ml Iopamidol (Isovue Multipack-370 (76%)) 100 ml IVPUSH ONETIME ONE Stop: 08/05/19 16:45 Last Admin: 08/05/19 20:51 Dose: Not Given Methylprednisolone Sodium Succinate (Solu-Medrol) 125 mg IVPUSH ONETIME ONE Stop: 08/05/19 14:46 Last Admin: 08/05/19 15:09 Dose: 125 mg Non-Formulary Medication (Citalopram) 10 mg PO BEDTIME [facility] Last Admin: 08/05/19 22:00 Dose: Not Given
[2019-08-06] MEDS ORDERED: Fluticasone Propionate Nasal Spray 16 GM Bottle NASBOTH SCH (09:15)
== END 2019-08-06 11:15 | disposition home or self-care (01) ==
LOC: MW.ED 13:17 → MW.MS 17:45
PROVIDERS: ADMIT Internal Medicine; ATTEND Internal Medicine
DX: J40 Bronchitis, not specified as acute or chronic (principal); H66.002 Acute suppurative otitis media without spontaneous rupture of ear drum, left ear; J32.9 Chronic sinusitis, unspecified; E78.5 Hyperlipidemia, unspecified; E78.00 Pure hypercholesterolemia, unspecified; K21.9 Gastro-esophageal reflux disease without esophagitis; F41.9 Anxiety disorder, unspecified; F32.9 Major depressive disorder, single episode, unspecified; G47.33 Obstructive sleep apnea (adult) (pediatric); E66.9 Obesity, unspecified; Z68.41 Body mass index [BMI] 40.0-44.9, adult; Z79.899 Other long term (current) drug therapy; Z99.89 Dependence on other enabling machines and devices
CPT/HCPCS: 36415; 71046; 71275; 80048; 80053; 81001; 83690; 84484; 85025; 87804; 93005; 96372; 96374; 99285; A9270; G0378; J1650; J2930; Q9967; 96376; 99284; J7620-GY

== ENCOUNTER 2021-04-22 05:52 | Emergency (ER) | payer BC ==
--- NOTE | 2021-04-22 06:13 | EDM.PDOC ---
<Caden Cage Ivan - Last Filed: 04/22/21 07:01> ED HPI GENERAL MEDICAL PROBLEM - General Chief Complaint: Cardiovascular Problem Stated Complaint: SHORTNESS OF BREATH Time Seen by Provider: 04/22/21 05:55 Source of Information: Reports: Patient History Limitations: Reports: No Limitations - History of Present Illness INITIAL COMMENTS - FREE TEXT/NARRATIVE: Patient is a 55-year-old female no past medical history presents today for shortness of breath. States for the past few days she is fine for she had a cold or sinus infection. States she feels like she has a productive cough as well. States that while she was at home she felt short of breath and went to have oxygen checked and became very nervous about it she does have some anxiety at times. Patient does not have neck pressure feeling in her chest when this episode started not sure if related to her anxiety issues as she having chest pain. Said pain did not radiate was not made better or worse with any events. She states she feels tired and fatigue as well and feels like her glands in her neck have been swollen but she has had no difficulty swallowing or speaking. - Related Data Allergies Allergy/AdvReac Type Severity Reaction Status Date / Time No Known Allergies Allergy Verified 04/22/21 06:11 Home Meds: Home Meds Citalopram Hydrobromide [Citalopram HBr] 10 mg PO DAILY 02/25/15 [History] Zolpidem Tartrate [Zolpidem Tartrate ER] 1 tab PO BEDTIME PRN 02/25/15 [History] atorvaSTATin Calcium [Atorvastatin Calcium] 20 mg PO BEDTIME 02/25/15 [History] Multivitamin [Multi-Day Vitamins] 1 tab PO DAILY 03/18/17 [History] Omeprazole 20 mg PO DAILY #30 cap.cr 04/06/17 [Rx] Albuterol Sulfate [Proair Hfa] 1 - 2 puff IH Q4H PRN #1 hfa.aer.ad 08/06/19 [Rx] Amoxicillin/Clavulanate K [Augmentin 875-125 MG] 1 tab PO Q12HR #14 tablet 08/06/19 [Rx] Fluticasone Propionate [Flonase] 1 spray NASBOTH DAILY #1 bottle 08/06/19 [Rx] predniSONE [Prednisone] 40 mg PO DAILY #10 tablet 08/06/19 [Rx] Past Medical History HEENT History: Reports: Allergic Rhinitis Other HEENT History: wears glasses Cardiovascular History: Reports: High Cholesterol Respiratory History: Reports: Sleep Apnea Other Respiratory History: uses CPAP Gastrointestinal History: Reports: Cholelithiasis, GERD Other Gastrointestinal History: Indigestion, epigastric pain Genitourinary History: Reports: Renal Calculus Other Genitourinary History: currently has left kidney stone, has passed a st one previously Psychiatric History: Reports: Anxiety, Depression Endocrine/Metabolic History: Reports: Obesity/BMI 30+ - Infectious Disease History Infectious Disease History: Reports: Chicken Pox - Past Surgical History Head Surgeries/Procedures: Reports: None HEENT Surgical History: Reports: Tonsillectomy GI Surgical History: Reports: Colonoscopy, EGD Other GI Surgeries/Procedures: EGD & colonoscopy on 04/07/17 Female Surgical History: Reports: D&C, Hysterectomy Other Female Surgeries/Procedures: Laparoscopy for cysts Social & Family History - Caffeine Use Caffeine Use: Reports: Coffee ED ROS GENERAL - Review of Systems Review Of Systems: See Below Constitutional: Reports: Fever, Chills, Malaise HEENT: Reports: No Symptoms Respiratory: Reports: Cough Cardiovascular: Reports: Chest Pain Endocrine: Reports: No Symptoms GI/Abdominal: Reports: No Symptoms : Reports: No Symptoms Musculoskeletal: Reports: No Symptoms Skin: Reports: No Symptoms Neurological: Reports: No Symptoms Psychiatric: Reports: No Symptoms Hematologic/Lymphatic: Reports: No Symptoms Immunologic: Reports: No Symptoms ED EXAM, GENERAL - Physical Exam Exam: See Below Exam Limited By: No Limitations Eye Exam: Bilateral Eye: EOMI Ears: Normal External Exam Nose: Normal Inspection Throat/Mouth: Normal Inspection, No Airway Compromise Head: Atraumatic, Normocephalic Neck: Normal Inspection Respiratory/Chest: No Respiratory Distress, Lungs Clear, Normal Breath Sounds Cardiovascular: Normal Peripheral Pulses, Regular Rate, Rhythm GI/Abdominal: Normal Bowel Sounds, Soft, Non-Tender Back Exam: Normal Inspection, Full Range of Motion Extremities: Normal Inspection, Normal Range of Motion Neurological: Alert, Oriented, Normal Cognition, Normal Gait #1 Interpretation EKG Date: 04/22/21 Time: 05:52 Rhythm: NSR Rate (Beats/Min): 81 ST-T: Normal Course - Re-Assessments/Exams Free Text/Narrative Re-Assessment/Exam: 04/22/21 07:01 Patient oxygen did drop down to 88% placed on 2 L now in the mid 95s patient did not look to be in any respiratory distress. Patient will be signed out to the oncoming attending Departure - Departure Disposition: Home, Self-Care 01 Clinical Impression: COVID-19 - Discharge Information Instructions: COVID-19 Frequently Asked Questions, What You Should Know About COVID-19 to Protect Yourself and Others - [facility], Symptoms of COVID-19 - CDC (09/01/2020), COVID-19: Quarantine vs. Isolation - [facility] (06/26/2020), COVID-19: What to Do If You Are Sick- [facility] (09/24/2020) Referrals: PCP,None [Primary Care Provider] - Forms: ED Department Discharge Additional Instructions: You should take acetaminophen 500-1000 mg every 6 hours as needed for fever and muscle aches. Please drink plenty of fluids and get plenty of rest over the next several days. We would recommend that she get a pulse oximeter from the pharmacy to keep an eye on your oxygen level. If your oxygen level drops below 91%, you should return to the ED for evaluation. You should return to the ER sooner if you start having any symptoms of shortness of breath or any other new or concerning symptoms. 1. Your COVID-19 screening is positive. That means you do have the coronavirus and you are considered contagious. Your vital signs and oxygen saturation are well enough that you were able to monitor your symptoms at home. Continue to monitor for trouble breathing, new confusion or inability to arouse, bluish lips or face or any of the other symptoms we discussed -if this occurs please return to the emergency room. 2. Please self quarantine over the next 10 days. Inform any persons that you have been in contact with since you started becoming symptomatic that you have tested positive; they should be made aware and take the appropriate steps as needed. 3. May alternate Tylenol and ibuprofen as needed for pain and fever management. 4. The [facility] will be calling you and following up with you. The [place] COVID 19 Hotline phone number , They are open Tuesday - Tuesday 7am - 7pm. Follow up with your primary care provider for re-evaluation and re-testing after the 10 day quarantine and discuss when you should be seen. [facility] [address] [place] [address] [facility] [address] [place] [address] The patient is informed of any results of their evaluation and diagnostic workup and all questions are answered. They are given discharge instructions and return precautions. The patient is stable for discharge. The patient states they understand and agree with the plan and that they will return if their symptoms get worse or if they have any new concerns. The following information is given to patients seen in the emergency department who are being discharged to home. This information is to outline your options for follow-up care. We provide all patients seen in our emergency department with a follow-up referral. The need for follow-up, as well as the timing and circumstances, are variable depending upon the specifics of your emergency department visit. If you don't have a primary care physician on staff, we will provide you with a referral. We always advise you to contact your personal physician following an emergency department visit to inform them of the circumstance of the visit and for follow-up with them and/or the need for any referrals to a consulting specialist. The emergency department will also refer you to a specialist when appropriate. This referral assures that you have the opportunity for follow-up care with a specialist. All of these measure are taken in an effort to provide you with optimal care, which includes your follow-up. Under all circumstances we always encourage you to contact your private physician who remains a resource for coordinating your care. When calling for follow-up care, please make the office aware that this follow-up is from your recent emergency room visit. If for any reason you are refused follow-up, please contact the [facility] Emergency Department at and asked to speak to the emergency department charge nurse. - Assessment/Plan Plan: Patient is a 55-year-old female who presents today for productive cough chest pain and feeling that she is sick. Patient could have possible Covid which she concerned about it she was satting from 92 to 95% on room air does not look to be any respiratory distress. Patient has a heart score of 1 just for age. We will obtain EKG labs x-ray and will reassess. If all negative patient likely be able to be discharged home. <Moose Veliz - Last Filed: 04/22/21 18:14> ED HPI GENERAL MEDICAL PROBLEM - History of Present Illness INITIAL COMMENTS - FREE TEXT/NARRATIVE: Patient was signed out to me by Dr. Cage at 7 AM. I promptly performed a detailed physical examination and my examination was done after ED treatments were initiated by the signout provider. Patient has been under the care of previous provider up until this point. On my reevaluation the patient was stable with the cardiac monitoring revealing heart rate of 91 and pulse oximetry with 93 to 95% on room air. The patient was not tachypneic and speaking in full sentences. At this time I did discuss that we were pending Covid screening. Laboratory: Covid was positive. After lab I did discuss the results with the patient. I did discuss symptomatic treatment at home and Regeneron therapy. She states that she needed to think about the Regeneron therapy. At this time given that her oxygen saturation is above 91%, the patient is not tachypneic, and appears well the patient is stable for discharge. She was given strict return precautions. DISPOSITION: Patient was discharged home in stable condition. The patient will follow up with her primary care physician after her allotted isolation CONDITION: Fair PROCEDURES: None FINAL IMPRESSION(S)/DIAGNOSES: 1. Acute COVID-19 viral illness Moose Veliz M.D. Course - Vital Signs Last Recorded V/S: Last Vital Signs Temp 36.4 C 04/22/21 06:06 Pulse 91 04/22/21 08:45 Resp 22 H 04/22/21 07:00 BP 153/86 H 04/22/21 08:45 Pulse Ox 93 L 04/22/21 08:45 - Orders/Labs/Meds Labs: Laboratory Tests 04/22/21 04/22/21 04/22/21 Range/Units 06:01 06:01 06:10 WBC 4.73 (4.0-11.0) K/uL RBC 5.39 (4.30-5.90) M/uL Hgb 15.3 (12.0-16.0) g/dL Hct 46.7 H (36.0-46.0) % MCV 86.6 (80.0-98.0) fL MCH 28.4 (27.0-32.0) pg MCHC 32.8 (31.0-37.0) g/dL RDW Std Deviation 48.0 (28.0-62.0) fl RDW Coeff of Kate 15 (11.0-15.0) % Plt Count 161 (150-400) K/uL MPV 10.00 (7.40-12.00) fL Neut % (Auto) 57.9 (48.0-80.0) % Lymph % (Auto) 29.0 (16.0-40.0) % [place] % (Auto) 12.7 (0.0-15.0) % Eos % (Auto) 0.2 (0.0-7.0) % Baso % (Auto) 0.2 (0.0-1.5) % Neut # (Auto) 2.7 (1.4-5.7) K/uL Lymph # (Auto) 1.4 (0.6-2.4) K/uL [place] # (Auto) 0.6 (0.0-0.8) K/uL Eos # (Auto) 0.0 (0.0-0.7) K/uL Baso # (Auto) 0.0 (0.0-0.1) K/uL Nucleated RBC % 0.0 /100WBC Nucleated RBCs # 0 K/uL Sodium 141 (136-145) mmol/L Potassium 3.2 L (3.5-5.1) mmol/L Chloride 100 (98-107) mmol/L Carbon Dioxide 27.7 (21.0-32.0) mmol/L BUN 10 (7.0-18.0) mg/dL Creatinine 0.8 (0.6-1.0) mg/dL Est Cr Clr Drug Dosing 64.95 mL/min Estimated GFR (MDRD) > 60.0 ml/min Glucose 138 H (74-106) mg/dL Calcium 7.9 L (8.5-10.1) mg/dL Total Bilirubin 0.5 (0.2-1.0) mg/dL AST 36 (15-37) IU/L ALT 47 (14-63) IU/L Alkaline Phosphatase 114 (46-116) U/L Troponin I < 0.050 (0.000-0.056) ng/mL Total Protein 7.3 (6.4-8.2) g/dL Albumin 3.7 (3.4-5.0) g/dL Globulin 3.6 (2.6-4.0) g/dL Albumin/Globulin Ratio 1.0 (0.9-1.6) SARS-CoV-2 RNA (MATTHEW) POSITIVE H (NEGATIVE) Departure - Departure Time of Disposition: 08:26 Condition: Fair - Discharge Information *PRESCRIPTION DRUG MONITORING PROGRAM REVIEWED*: No *COPY OF PRESCRIPTION DRUG MONITORING REPORT IN PATIENT JORGE: No Sepsis Event Note (ED) - Focused Exam Vital Signs: Vital Signs Pulse Resp BP Pulse Ox 04/22/21 08:45 91 153/86 H 93 L 04/22/21 07:00 78 22 H 131/68 95
--- NOTE | 2021-04-22 06:33 | CR ---
INDICATION: Chest pain. TECHNIQUE: Chest 1 views. COMPARISON: 10/09/2019. FINDINGS: Cardiovascular and mediastinum: Heart size and vasculature are normal in caliber and appearance. Lungs and pleural spaces: Lungs are clear. No sign of infiltrate or mass. No sign of pleural effusion. No pneumothorax. Bones and soft tissues: No significant findings. IMPRESSION: No acute findings and no significant changes from the prior exam. Dictated by Savage Ragland MD @ 04/22/2021 6:32:56 AM (Electronically Signed)
[2021-04-22 06:43] LABS: BLOOD UREA NITROGEN,BUN 10 mg/dL (7.0-18.0); CARBON DIOXIDE,CO2 27.7 mmol/L (21.0-32.0); CHLORIDE,CL 100 mmol/L (98-107); GLUCOSE RANDOM 138 mg/dL (74-106); POTASSIUM,K 3.2 mmol/L (3.5-5.1); SODIUM,NA 141 mmol/L (136-145)
[2021-04-22 08:46] VITALS: BP 153/86; PULSE 91
== END 2021-04-22 08:45 | disposition home or self-care (01) ==
LOC: MW.ED 05:52
DX: U07.1 COVID-19 (principal); E78.00 Pure hypercholesterolemia, unspecified; K21.9 Gastro-esophageal reflux disease without esophagitis; E66.9 Obesity, unspecified; Z68.41 Body mass index [BMI] 40.0-44.9, adult; Z79.899 Other long term (current) drug therapy
CPT/HCPCS: 36415; 71045; 71045-26; 80053; 84484; 85025; 93005; 99285-25; U0002